=== PATIENT | male | born 1960 | race African-American/Black ===

== ENCOUNTER 2021-06-09 15:03 | Emergency (ER) | payer OTHER, SELFPAY | END 2021-06-09 15:37 | disposition home or self-care (01) | LOC: BURERS 15:03 | DX: I10 Essential (primary) hypertension (principal); M54.5 Low back pain; G89.29 Other chronic pain; E78.5 Hyperlipidemia, unspecified; Z79.899 Other long term (current) drug therapy; I25.2 Old myocardial infarction; F17.210 Nicotine dependence, cigarettes, uncomplicated | CPT/HCPCS: 99283 ==

== ENCOUNTER 2022-03-10 21:00 | Emergency (ER) | payer SELFPAY ==
[2022-03-10] MEDS ORDERED: Ibuprofen 800 MG TAB ONE (21:42)
[2022-03-10] MEDS ORDERED: traMADol HCl 50 MG TAB ONE (21:42)
== END 2022-03-10 22:35 | disposition home or self-care (01) ==
LOC: BURERS 21:00
DX: M47.816 Spondylosis without myelopathy or radiculopathy, lumbar region (principal); M47.812 Spondylosis without myelopathy or radiculopathy, cervical region; E04.1 Nontoxic single thyroid nodule; K80.20 Calculus of gallbladder without cholecystitis without obstruction; I10 Essential (primary) hypertension; I25.2 Old myocardial infarction; E78.5 Hyperlipidemia, unspecified; E78.00 Pure hypercholesterolemia, unspecified; F17.210 Nicotine dependence, cigarettes, uncomplicated; Z79.899 Other long term (current) drug therapy; W07.XXXA Fall from chair, initial encounter
CPT/HCPCS: 72125; 72131

== ENCOUNTER 2022-05-31 13:49 | Emergency (ER) | payer OTHER, SELFPAY | END 2022-05-31 16:21 | disposition home or self-care (01) | LOC: BURERS 13:49 → EEVIPCON 13:49 → BURERS 16:21 | DX: S09.90XA Unspecified injury of head, initial encounter (principal); S00.03XA Contusion of scalp, initial encounter; M54.2 Cervicalgia; M54.6 Pain in thoracic spine; M62.830 Muscle spasm of back; W18.30XA Fall on same level, unspecified, initial encounter; I10 Essential (primary) hypertension; I25.2 Old myocardial infarction; E78.5 Hyperlipidemia, unspecified; E78.00 Pure hypercholesterolemia, unspecified; Z87.891 Personal history of nicotine dependence | CPT/HCPCS: 70450; 72125; 72131 ==